=== PATIENT | male | born 1970 | race Caucasian/White ===

== ENCOUNTER 2021-01-07 09:17 | Emergency (ER) | payer BC, OTHER ==
[~2021-01-07] VITALS: Ht 193 cm; Wt 113.4 kg
[~2021-01-07 09:17] MED LIST: DOXYCYCLINE MO100 MG ORAL; NKM; NORCO 5-325 TA1 EACH ORAL
[2021-01-07] MEDS ORDERED: Omnipaque 350 100ml vial INJ PRN (09:45)
--- NOTE | 2021-01-07 09:55 | Emergency Room Report ---
History of Present Illness General Chief Complaint: General Complaint Source: Patient Present Illness HPI Patient is a 50-year-old male past medical history of gastritis who presents to the ER complaining of generalized weakness. Patient states that he was diagnosed with COVID-19 just over a week ago and has been having intermittent fevers and fatigue. He states that he takes Tylenol or ibuprofen once daily for his fever. He states that by the end of the day he feels very fatigued. He states that after taking Tylenol or Motrin he sweats a lot and that the fever resolves. He denies any shortness of breath, chest pain or cough. He was referred to the emergency room for a CT of his chest to rule out any acute pulmonary pathology. Allergies: Coded Allergies: No Known Allergies (Unverified , 06/28/16) COVID-19 Screening Contact w/high risk pt: No Experienced COVID-19 symptoms?: No COVID-19 Testing performed [employer] CONSULTANT: Yes COVID-19 Screening: Positive COVID-19 COVID-19 Testing Source: 10 days ago Patient History Reviewed Nursing Documentation: PMH: Agreed; PSxH: Agreed Nursing Documentation-PMH Past Medical History: No History, Except For Review of Systems All Other Systems: negative except mentioned in HPI Physical Exam Vital Signs Date Time Temp Pulse Resp B/P (MAP) Pulse Ox O2 Delivery O2 Flow Rate FiO2 01/07/21 09:22 98.4 99 16 170/107 (128) 96 Room Air Sp02 EP Interpretation: reviewed, normal General Appearance: no apparent distress, alert, GCS 15, non-toxic Head: normocephalic, atraumatic Eyes: bilateral eye normal inspection, bilateral eye PERRL ENT: hearing grossly normal, normal pharynx, no angioedema, normal voice Neck: full range of motion, supple/symm/no masses Respiratory: chest non-tender, lungs clear, normal breath sounds, speaking full sentences Cardiovascular #1: regular rate, rhythm, no edema Gastrointestinal: non tender, soft Rectal: deferred Musculoskeletal: normal range of motion Neurologic: public service officer III-XII nml as tested, oriented x3 Psychiatric: no suicidal/homicidal ideation Skin: no rash Lymphatic: no adenopathy Medical Decision Making Diagnostic Impression: Primary Impression: Pneumonia due to COVID-19 virus ER Course Patient has stable vital signs. Patient is not tachycardic or hypoxic. Patient had labs that demonstrated mildly elevated glucose patient states he was not fasting. CT demonstrates groundglass opacities consistent with COVID-19 pneumonia. Patient already on azithromycin. Patient has been given a copy of his CT. Patient advised to rest and hydrate. He can use Tylenol and Motrin as needed for fever. I have also texted Dr. Huerta to notify him of these test results. After discussing risks and benefits of further diagnostics, treatment plans, as well as indications for and risks of admission, the patient is agreeable to being discharged home. I have explained that their evaluation and treatment in the emergency department today is an important step towards them achieving better health but that their evaluation today is not intended to replace further evaluation and treatment by a physician in their local clinic. I have explained that while the current findings suggest no immediate life threatening emergency they will require further evaluation and treatment by a physician of their choice in their area. They understand that it will be necessary for them to review the final reports of their ED visit with their clinic physician. We have reviewed indications for return to the Emergency Department. I have explained that additional time may need to pass and/or additional testing as an outpatient may be necessary before a definitive diagnosis can be made. They tell me they are willing to follow up as instructed within the timeframe I recommend. They appear to understand what we discussed. Additionally they understand that if they are unable to be seen by an outpatient physician they are welcome, and in fact should, return to the Emergency Department for a repeat evaluation. The patient is stable at time of discharge. Laboratory Tests Test 01/07/21 09:40 White Blood Count 8.3 K/UL (4.8-10.8) Red Blood Count 5.32 M/UL (4.70-6.10) Hemoglobin 15.3 G/DL (14.2-18.0) Hematocrit 46.5 % (42.0-52.0) Mean Corpuscular Volume 87 FL (80-99) Mean Corpuscular Hemoglobin 28.7 PG (27.0-31.0) Mean Corpuscular Hemoglobin Concent 32.9 G/DL (32.0-36.0) Red Cell Distribution Width 11.4 % (11.6-14.8) L Platelet Count 235 K/UL (150-450) Mean Platelet Volume 6.6 FL (6.5-10.1) Neutrophils (%) (Auto) 61.5 % (45.0-75.0) Lymphocytes (%) (Auto) 28.7 % (20.0-45.0) Monocytes (%) (Auto) 8.8 % (1.0-10.0) Eosinophils (%) (Auto) 0.5 % (0.0-3.0) Basophils (%) (Auto) 0.6 % (0.0-2.0) Sodium Level 138 MMOL/L (136-145) Potassium Level 3.8 MMOL/L (3.5-5.1) Chloride Level 102 MMOL/L (98-107) Carbon Dioxide Level 28 MMOL/L (21-32) Anion Gap 8 mmol/L (5-15) Blood Urea Nitrogen 12 mg/dL (7-18) Creatinine 1.3 MG/DL (0.55-1.30) Estimated Glomerular Filtration Rate 12.6 mL/min (>60) Glucose Level 185 MG/DL (74-106) H Calcium Level 9.5 MG/DL (8.5-10.1) Magnesium Level 2.4 MG/DL (1.8-2.4) Total Bilirubin 0.5 MG/DL (0.2-1.0) Aspartate Amino Transferase (AST) 40 U/L (15-37) H Alanine Aminotransferase (ALT) 92 U/L (12-78) H Alkaline Phosphatase 67 U/L (46-116) Total Protein 8.9 G/DL (6.4-8.2) H Albumin 3.8 G/DL (3.4-5.0) Globulin 5.1 g/dL Albumin/Globulin Ratio 0.7 (1.0-2.7) L Last Vital Signs Date Time Temp Pulse Resp B/P (MAP) Pulse Ox O2 Delivery O2 Flow Rate FiO2 01/07/21 09:22 98.4 99 16 170/107 (128) 96 Room Air Disposition: HOME, SELF-CARE Condition: Stable Additional Instructions: The patient was provided with discharge instructions, notified to follow-up with a primary care doctor and or specialist in the next 24-48 hours, and to return to the ED if they have worsening of their symptoms. Please note that this report is being documented using AwesomeTouch technology. This can lead to erroneous entry secondary to incorrect interpretation by the dictating instrument. Melisa Huizar M.D. Jan 07, 2021 09:55
[2021-01-07 09:57] VITALS: BP 170/107
--- NOTE | 2021-01-07 09:59 | NUR ---
pt stated that he has no c/o pain, discomfort or SOB. he is 10 days out from having COVID and is still not feeling like himself. 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 stated his had it at the same time he did but she is much better than he is.
[2021-01-07 10:17] LABS: BASOPHILS % (AUTO) 0.6 % (0.0-2.0); EOSINOPHILS % (AUTO) 0.5 % (0.0-3.0); HEMATOCRIT 46.5 % (42.0-52.0); HEMOGLOBIN 15.3 G/DL (14.2-18.0); LYMPHOCYTES % (AUTO) 28.7 % (20.0-45.0); MEAN CORPUSCULAR VOLUME 87 FL (80-99); MONOCYTES % (AUTO) 8.8 % (1.0-10.0); NEUTROPHILS % (AUTO) 61.5 % (45.0-75.0); PLATELET COUNT 235 K/UL (150-450); RED BLOOD COUNT 5.32 M/UL (4.70-6.10); RED CELL DISTRIBUTION WIDTH 11.4 % (11.6-14.8); WHITE BLOOD COUNT 8.3 K/UL (4.8-10.8)
[2021-01-07 10:29] LABS: CALCIUM 9.5 MG/DL (8.5-10.1); POTASSIUM 3.8 MMOL/L (3.5-5.1)
[2021-01-07 10:33] LABS: ALBUMIN 3.8 G/DL (3.4-5.0); ALBUMIN/GLOBULIN RATIO 0.7 (1.0-2.7); BILIRUBIN,TOTAL 0.5 MG/DL (0.2-1.0); CREATININE 1.3 MG/DL (0.55-1.30)
--- NOTE | 2021-01-07 10:51 | NUR ---
pt waiting for CT scan, updated him
--- NOTE | 2021-01-07 12:15 | Diagnostic Imaging Report ---
Indication: Reason For Exam: SOB Technique: CT angiography performed utilizing thin section spiral CT and bolus contrast injection. Axial, coronal, and sagittal images were generated. Maximum intensity projections (MIPs) were obtained in the coronal and sagittal planes. Dose: Total Dose Length Product - DLP [address] Dose Index - CTDIvol(s) 68 mGy. Automated exposure control was utilized for dose reduction. Findings: The aorta is normal in caliber. There is no evidence of aortic dissection or aortic aneurysm. Heart is normal in size. There are no pulmonary emboli. Patchy bilateral areas of groundglass density are noted, left greater than right. Linear areas of atelectasis are also present in the lung bases. The pulmonary darling are normal. There is no pleural fluid. The adrenal glands appear normal. Impression: No evidence of pulmonary emboli or aortic dissection. Patchy areas of groundglass density bilaterally. This is consistent with COVID-19 pneumonia. Bilateral atelectasis. The CT scanner at [facility] is accredited by the [employer] and the scans are performed using protocols designed to limit radiation exposure to as low as reasonably achievable to attain images of sufficient resolution adequate for diagnostic evaluation.
--- NOTE | 2021-01-07 12:38 | NUR ---
ER DISCHARGE NOTE: Patient is cleared to be discharged per ERMD, pt is aox4, on room air, with stable vital signs. pt was given dc instructions, pt was able to verbalize understanding, pt id band and iv site removed without complications. pt is able to ambulate with steady gait. pt took all belongings.
== END 2021-01-07 12:39 | disposition home or self-care (01) ==
LOC: EMR 12:35
DX: U07.1 COVID-19 (principal); J12.82 Pneumonia due to coronavirus disease 2019
CPT/HCPCS: 36415; 71275; 80053; 83735; 85025; 96360; 99284; Q9967